=== PATIENT | female | born 1995 | race Caucasian/White ===

== ENCOUNTER 2021-03-09 14:13 | Emergency (ER) | payer MEDICAID ==
[~2021-03-09] VITALS: Ht 157.5 cm; Wt 49.9 kg
[2021-03-09 15:19] VITALS: BP 103/69
--- NOTE | 2021-03-09 16:17 | NUR ---
Patient discharged to home in stable condition. Written and verbal after care instructions given. Patient verbalizes understanding of instruction. Pt ambulatory with a steady gait
== END 2021-03-09 16:18 | disposition home or self-care (01) ==
LOC: ER 14:24
DX: U07.1 COVID-19 (principal)